=== PATIENT | male | born 1955 | race Caucasian/White ===

== ENCOUNTER 2021-09-12 08:07 | Emergency (ER) | payer OTHER ==
--- OUTSIDE RECORDS SUMMARY | 2021-09-12 08:10 | XMS REPORT | Continuity of Care Document ---
:1955 Author Organization [facility] t Address [address] [place] [address] Care Team Providers Name Role Phone FILIPPO Attending Clinician Unavailable Therapy-Walkin Attending Clinician Unavailable Opal Ramos MD Attending Clinician Doctor Unassigned, Name Attending Clinician Unavailable Payers Payer Name Policy Type Policy Number Effective Date Expiration Date S ource Problems Condition Condition Condition Status Onset Resolution Last Treating Co mments Source Name Details Category Date Date Treatment Clinician Date Contractur Contractur Disease Active 2019- U nivers e of e of 822 ity of palmar palmar 00:00: [place] fascia fascia [address] [place] [address] Finger Finger Disease Active 2019-0 Univers stiffness, stiffness, 822 it y of left left 00:00: [address] Allergies, Adverse Reactions, Alerts Allergy Allergy Status Severity Reaction(s) Onset Inactive Treating Comm ents Source Name Type Date Date Clinician No Known DA Active U 2019-0 [facility] Allergie 8-12 Clear s 00:00: [address] Social History Social Habit Start Date Stop Date Quantity Comments Source Alcohol intake [facility] Sex Assigned At [facility] Tobacco Comment 2015-06-24 2015-06-24 DIP [facility] 00:00:00 00:00:00 [facility] [place] Smoking Status Start Date Stop Date Source Never smoker [facility] Medications Ordered Filled Start Stop Current Ordering Indication Dosage Frequency Signature Comments Components Source Medication Medication Date Date Medication? Clinician (SIG) Name Name diclofenac 2016-0 Yes 75mg Take 1 Unive rs (VOLTAREN) 7-21 tablet by ity of 75 mg EC 00:00: mouth 2 [place] tablet 00 (two) Medical times Branch daily with meals. diclofenac 2016-0 Yes 75mg Take 1 Unive rs (VOLTAREN) 7-21 tablet by ity of 75 mg EC 00:00: mouth 2 [place] tablet 00 (two) Medical times Branch daily with meals. diclofenac 2016-0 Yes 75mg Take 1 Unive rs (VOLTAREN) 7-21 tablet by ity of 75 mg EC 00:00: mouth 2 [place] tablet 00 (two) Medical times Branch daily with meals. diclofenac 2016-0 Yes 75mg Take 1 Unive rs (VOLTAREN) 7-21 tablet by ity of 75 mg EC 00:00: mouth 2 [place] tablet 00 (two) Medical times Branch daily with meals. diclofenac 2016-0 Yes 75mg Take 1 Unive rs (VOLTAREN) 7-21 tablet by ity of 75 mg EC 00:00: mouth 2 [place] tablet 00 (two) Medical times Branch daily with meals. losartan 2016 Yes 25mg Take 25 mg Uni vers (COZAAR) 25 2-24 by mouth ity of mg tablet 21:31: daily. [address] losartan [address] Yes 25mg Take 25 mg Uni vers (COZAAR) 25 2-24 by mouth ity of mg tablet 21:31: daily. [address] losartan [address] Yes 25mg Take 25 mg Uni vers (COZAAR) 25 2-24 by mouth ity of mg tablet 21:31: daily. [address] losartan 2016-0 Yes 25mg Take 25 mg Uni vers (COZAAR) 25 2-24 by mouth ity of mg tablet 21:31: daily. [address] losartan 2016-0 Yes 25mg Take 25 mg Uni vers (COZAAR) 25 2-24 by mouth ity of mg tablet 21:31: daily. [address] IBUPROFEN 2016-0 Yes Take by Univ ers (ADVIL 2-24 mouth. ity of ORAL) 21:31: [address] IBUPROFEN 2016-0 Yes Take by Univ ers (ADVIL 2-24 mouth. ity of ORAL) 21:31: [place] 03 [facility] Branch IBUPROFEN 2016-0 Yes Take by [facility] ers (ADVIL 2-24 mouth. ity of ORAL) 21:31: [place] [facility] IBUPROFEN 2016-0 Yes Take by [facility] ers (ADVIL 2-24 mouth. ity of ORAL) 21:31: [place] [facility] IBUPROFEN 2016-0 Yes Take by [facility] ers (ADVIL 2-24 mouth. ity of ORAL) 21:31: [place] [facility] methylPREDN 2016-0 Yes 84mg Take 21 Uni vers ISolone 2-24 Tabs by ity of (MEDROL, 00:00: mouth [place] SYLVIA,) 4 mg 00 SEE-INSTRU Med ical tablets CTIONS. Branch follow package directions methylPREDN 2016-0 Yes 84mg Take 21 Uni vers ISolone 2-24 Tabs by ity of (MEDROL, 00:00: mouth [place] SYLVIA,) 4 mg 00 SEE-INSTRU Med ical tablets CTIONS. Branch follow package directions methylPREDN 2016-0 Yes 84mg Take 21 Uni vers ISolone 2-24 Tabs by ity of (MEDROL, 00:00: mouth [place] SYLVIA,) 4 mg 00 SEE-INSTRU Med ical tablets CTIONS. Branch follow package directions methylPREDN 2016-0 Yes 84mg Take 21 Uni vers ISolone 2-24 Tabs by ity of (MEDROL, 00:00: mouth [place] SYLVIA,) 4 mg 00 SEE-INSTRU Med ical tablets CTIONS. Branch follow package directions methylPREDN 2016-0 Yes 84mg Take 21 Uni vers ISolone 2-24 Tabs by ity of (MEDROL, 00:00: mouth [place] SYLVIA,) 4 mg 00 SEE-INSTRU Med ical tablets CTIONS. Branch follow package directions Procedures Procedure Date / Time Performing Clinician Source Performed NO SHOW OR MISSED 2019-01-16 16:03:23 Doctor Unassgénesis, [facility] APPOINTMENT POLICY [facility] ACKNOWLEDGEMENT ASSIGNMENT OF BENEFITS 2018-12-20 16:46:03 Doctor Tiny, [facility] REFERRAL- REQUEST/RESPONSE 2018-12-10 05:01:00 Doctor Summerssigned , [facility] Encounters Start End Encounter Admission Attending Care Care Encounter Source Date/Time Date/Time Type Type Clinicians Facility Department ID 2020-01-30 2020-01-30 Outpatient FILIPPO [facility] [id number] [place] 00:00:00 00:00:00 CHARLES [address] 2020-01-30 2020-01-30 Outpatient FILIPPO [facility] [id number] [place] 00:00:00 00:00:00 CHARLESARIANNA Crisostomo [facility] 2019-01-16 2019-01-16 Ancillary Therapy-Wal [facility] 1.2.840.114 [id number] 11:03:56 13:17:53 Visit john, Health [id number] Lia-Bb-Occu [place] 4.2.7.2.[address] [facility] [phone] [address] ([facility]) 2019-01-16 2019-01-16 Ancillary Therapy-Walkin, Ayp-Xs-Miqiz UTM B 1.2.840.114 [id number] [facility] 11:03:56 13:17:53 Visit Elbert Ramos Health [id number] ity of League 4.2.7.2.686 [facility] [phone] [address] ([facility]) 2019-01-16 2019-01-16 Orders Doctor LING 1.2.840.114 [id number] 00:00:00 00:00:00 Only Unassigned, MYRIAM [id number] [facility] 4.2.7.2.686 [id number] [id number] 2019-01-16 2019-01-16 Orders Doctor ANURADHA 1.2.840.114 [id number] Univers 00:00:00 00:00:00 Only Unassigned, MYRIAM [id number] ity of [facility] 4.2.7.2.686 Rey [phone] [address] 2018-12-20 2018-12-20 Ancillary Therapy-Wal [facility] 1.2.840.114 [id number] 10:37:38 11:37:38 Visit john Health [id number] Lia-Bb-Occu League 4.2.7.2.[address] [facility] [phone] [address] ([facility]) 2018-12-20 2018-12-20 Ancillary Therapy-Walkin, Mlw-Dl-Vaweq UTM B 1.2.840.114 [id number] [facility] 10:37:38 11:37:38 Visit Elbert Ramos [facility] [id number] ity of League 4.2.7.2.686 [facility] [phone] [address] ([facility]) 2018-12-20 2018-12-20 Orders Doctor ANURADHA 1.2.840.114 [id number] Univers 00:00:00 00:00:00 Only Unassigned, MYRIAM [id number] ity of [facility] 4.2.7.2.686 Rey as [phone] [address] 2018-12-20 2018-12-20 Orders Doctor ANURADHA 1.2.840.114 [id number] 00:00:00 00:00:00 Only Unassigned, MRYIAM 350.1.13.10 [facility] 4.2.7.2.686 [id number] [id number] 2018-12-10 2018-12-10 Orders Doctor ANURADHA 1.2.840.114 [id number] Univers 00:00:00 00:00:00 Only Unassigned, MYRIAM 350.1.13.10 ity of [facility] 4.2.7.2.686 Rey as [phone] [address] 2018-12-10 2018-12-10 Orders Doctor ANURADHA 1.2.840.114 [id number] 00:00:00 00:00:00 Only Unassigned, MYRIAM 350.1.13.10 [facility] 4.2.7.2.686 [id number] [id number] Results Test Description Test Time Test Comments Results Result Comments Source - XR CHEST 2 V 2018-12-10 FAX: Y 11:55:00 Diasy Craven [phone] [place]: St: PRE Name: JANKI SOTO [facility] : 1955 Age/S: 63/M [address] [place] [address] Blvd Unit #: [id number] Loc: [place] [address] Phys: Daisy Craven MD Acct: [id number] Dis Date: Status: PRE SDC PHONE #: [phone] Exam Date: 12/10/2018 1117 FAX #: [phone] Reason: LEFT HAND DUPUYTRENS DISEASE EXAMS: CPT CODE: [id number] XR CHEST 2 V 68394 CLINICAL HISTORY: LEFT HAND DUPUYTREN DISEASE COMPARISON: NONE PA and lateral films of the chest demonstrate that heart size is normal. Lung snow are clear. No evidence of pneumonia or congestive failure is seen. Regional skeletal structures demonstrate no acute abnormality. IMPRESSION: No evidence of pneumonia or congestive failure is seen. at 1159 Reported and signed by: Canelo Anderson M.D. CC: Daisy Craven MD Technologist: RT Ren(Gulshan) Trnscrd Date/Time/By: 12/10/2018 (1127) : By: CapoYOS Orig Print D/T: S: 12/10/2018 (3433) PAGE 1 Signed Report BASIC METABOLIC PANEL 2018-12-10 11:35:00 Test Item Value Reference Range Interpretation Comme nts SODIUM (test code = NA) 142 mEq/L 134-147 N POTASSIUM (test code = K) 3.9 mEq/L 3.4-5.0 N CHLORIDE (test code = CL) 108 mEq/L 100-108 N CARBON DIOXIDE (test code = CO2) 30 mEq/L 21-33 N ANION GAP (test code = GAP) 8 0-20 N GLUCOSE (test code = GLU) 105 mg/dL 70-110 N BLOOD UREA NITROGEN (test code = 16 mg/dL 7-18 N BUN) GLOMERULAR FILTRATION RATE (test 76.0 80-90 L Units of measure = ml/min/1.73 code = GFR) m2 CREATININE (test code = CREAT) 1.0 mg/dL 0.6-1.3 N CALCIUM (test code = CA) 9.2 mg/dL 8.0-10.5 N CBC W/AUTO [id number] 11:31:00 Test Item Value Reference Range Interpretation Comments WHITE BLOOD CELL (test code = 7.36 x10 3/uL 4.5-11.0 N WBC) RED BLOOD CELL (test code = 4.29 x10 6/uL 4.00-5.60 N RBC) HEMOGLOBIN (test code = HGB) 13.6 g/dL 12.5-16.9 N HEMATOCRIT (test code = HCT) 40.7 % 37.5-50.7 N MEAN CELL VOLUME (test code = 94.9 fL 81.0-99.0 N MCV) MEAN CELL HGB (test code = MCH) 31.7 pg 27.0-33.0 N MEAN CELL HGB CONCETRATION 33.4 g/dL 33.0-37.0 N (test code = MCHC) RED CELL DISTRIBUTION WIDTH CV 11.9 % 11.5-14.5 N (test code = RDW) RED CELL DISTRIBUTION WIDTH SD 41.5 fL 37.0-54.0 N (test code = RDW-SD) PLATELET COUNT (test code = 252 x10 3/uL 150-400 N PLT) MEAN PLATELET VOLUME (test code 10.3 fL 7.0-9.0 H = MPV) NEUTROPHIL % (test code = NT%) 68.4 % 56.0-77.0 N IMMATURE GRANULOCYTE % (test 0.8 % 0.0-2.0 N code = IG%) LYMPHOCYTE % (test code = LY%) 19.6 % 14.0-32.0 N MONOCYTE % (test code = MO%) 7.9 % 4.8-9.0 N EOSINOPHIL % (test code = EO%) 2.3 % 0.3-3.7 N BASOPHIL % (test code = BA%) 1.0 % 0.0-2.0 N NUCLEATED RBC % (test code = 0.0 % 0-0 N NRBC%) NEUTROPHIL # (test code = NT#) 5.04 x10 3/uL 2.0-7.6 N IMMATURE GRANULOCYTE # (test 0.06 x10 3/uL 0.00-0.03 H code = IG#) LYMPHOCYTE # (test code = LY#) 1.44 x10 3/uL 1.0-3.8 N MONOCYTE # (test code = MO#) 0.58 x10 3/uL 0.1-0.8 N EOSINOPHIL # (test code = EO#) 0.17 x10 3/uL 0.0-0.2 N BASOPHIL # (test code = BA#) 0.07 x10 3/uL 0.0-0.2 N NUCLEATED RBC # (test code = 0.00 x10 3/uL 0.0-0.1 N NRBC#) MANUAL DIFF REQUIRED (test code NO = MDIFF)
[2021-09-12] MEDS ORDERED: dexAMETHasone 10 MG/ML VIAL ONE (08:38)
[2021-09-12] MEDS ORDERED: KETOROLAC 30 MG/ML INJ ONE (08:39)
--- NOTE | 2021-09-12 09:39 | RAD REPORT ---
EXAM DESCRIPTION: RAD -Hand Left 3 View - 09/12/2021 9:31 am CLINICAL HISTORY: Left hand pain FINDINGS: No fracture or dislocation is seen. Bones appear somewhat osteoporotic. Mild narrowing involves several DIP and PIP joints.
--- NOTE | 2021-09-12 09:59 | EDPHYS ---
Physician Documentation [facility] Name: Madhu Posada Age: 65 yrs Sex: Male : 1955 Arrival Date: 09/12/2021 Time: 08:09 Bed 20 Private MD: Nilesh Blanc E ED Physician Troy Painter HPI: 09/12 08:22 This 65 yrs old Male presents to ER via Ambulatory with complaints of Hand Swelling, pm1 Wrist Pain. 08:22 The patient or guardian reports swelling to right hand and pain to right wrist. pm1 Context: resulted from an unknown cause. Onset: The symptoms/episode began/occurred 3 day(s) ago. Modifying factors: the symptoms are aggravated by Patient continued to work out, lift weights with swelling of right hand and pain to right wrist. Associated signs and symptoms: Pertinent negatives: cyanosis distally, decreased sensation distally, numbness distally, tingling distally. Severity of symptoms: in the emergency department the symptoms are actually worse. The patient has not experienced similar symptoms in the past. The patient has not recently seen a physician. Historical: - Allergies: 08:45 No Known Allergies; bp - Home Meds: 08:45 Carbidopa-Levodopa Oral [Active]; Sulfasalazine Oral [Active]; losartan oral [Active]; bp - PMHx: 08:45 Hypertensive disorder; Parkinson's disease; Arthritis; bp - Immunization history:: Client reports receiving the 2nd dose of the Covid vaccine. - Social history:: Smoking status: Patient denies any tobacco usage or history of. ROS: 08:22 Constitutional: Negative for fever, chills, and weight loss, Cardiovascular: Negative pm1 for chest pain, palpitations, and edema, Respiratory: Negative for shortness of breath, cough, wheezing, and pleuritic chest pain, Back: Negative for injury and pain. 08:22 Skin: Negative for injury, rash, and discoloration, Neuro: Negative for headache, weakness, numbness, tingling, and seizure. 08:22 MS/extremity: Positive for right wrist pain and right hand swelling. 08:22 All other systems are negative. Exam: 08:22 Constitutional: This is a well developed, well nourished patient who is awake, alert, pm1 and in no acute distress. Head/Face: Normocephalic, atraumatic. 08:22 Skin: Warm, dry with normal turgor. Normal color with no rashes, no lesions, and no evidence of cellulitis. 08:22 Cardiovascular: Exam negative for acute changes, Rate: normal, Rhythm: regular, Pulses: no pulse deficits are appreciated, Pulses are 2+ in right radial artery. 08:22 Respiratory: Exam negative for acute changes, respiratory distress, shortness of breath. 08:22 Musculoskeletal/extremity: Extremities: grossly normal except: noted in the dorsal aspect of right wrist tenderness with percussion: noted in the right wrist: mild pain with Phalen's test. 08:22 Neuro: Exam negative for acute changes, Orientation: is normal, Mentation: is normal, Motor: is normal, moves all fours. Vital Signs: 08:21 BP 129 / 96; Pulse 76; Resp 16; Temp 98.2; Pulse Ox 99% on R/A; iw 10:12 BP 124 / 85; Pulse 74; Resp 17; Pulse Ox 99% ; bp MDM: 08:15 Patient medically screened. pm1 09:15 Data reviewed: vital signs. Data interpreted: Pulse oximetry: on room air is 99 %. pm1 Interpretation: normal. 09:56 Counseling: I had a detailed discussion with the patient and/or guardian regarding: the pm1 historical points, exam findings, and any diagnostic results supporting the discharge/admit diagnosis, radiology results, the need for outpatient follow up, a family practitioner, a hand specialist, a orthopedic surgeon, to return to the emergency department if symptoms worsen or persist or if there are any questions or concerns that arise at home. 09:56 ED course: patient's possible other diagnosis is sprain to right wrist. Patient has pm1 been weight lifting and performing pull down's. Patient taking sulfasalazine so will treat with steroids for inflammation and wrist splint with instructions to stop working out to reduce further inflamation and injury. 09/12 09:35 Order name: Hand Right 3 View; Complete Time: 09:40 EDMS 09/12 08:22 Order name: Ice pack; Complete Time: 08:41 pm1 09/12 09:42 Order name: Wrist Splint; Complete Time: 10:01 pm1 Administered Medications: 08:30 Drug: Ketorolac 60 mg Route: IM; Site: left gluteus; bp 09:43 Follow up: Response: No adverse reaction bp 08:30 Drug: Decadron (dexamethasone) 10 mg Route: IM; Site: left gluteus; bp 09:43 Follow up: Response: No adverse reaction bp Disposition Summary: 09/12/21 09:58 Discharge Ordered Location: Home pm1 Problem: new pm1 Symptoms: have improved pm1 Condition: Stable pm1 Diagnosis - Unspecified osteoarthritis, 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 pm1 Followup: pm1 - With: Emergency Department - When: As needed - Reason: Worsening of condition Followup: pm1 - With: Private Physician - When: 2 - 3 days - Reason: Recheck today's complaints, Continuance of care, Re-evaluation by your physician Discharge Instructions: - Discharge Summary Sheet pm1 - Arthritis pm1 Forms: - Medication Reconciliation Form pm1 - Thank You Letter pm1 - Antibiotic Education pm1 - Prescription Opioid Use pm1 Prescriptions: - Medrol (Rubin) 4 mg Oral Tablets, Dose Pack - take 1 tablet by ORAL route as directed - follow package instructions; 1 pm1 packet; Refills: 0, Product Selection Permitted Signatures: Dispatcher [employer] EDMS Gaurang Muller, TIMBER ESTIMATOR TIMBER ESTIMATOR pm1 Elbert Borges, RN RN bp Corrections: (The following items were deleted from the chart) 09:34 08:23 Hand Left 3 View+RAD.RAD.WAGNER ordered. EDNC TANMAYNC
--- NOTE | 2021-09-12 09:59 | ER ---
Nurse's Notes [facility] Name: Madhu Posada Age: 65 yrs Sex: Male : 1955 Arrival Date: 09/12/2021 Time: 08:09 Bed 20 Private MD: Nilesh Blanc E Diagnosis: Unspecified osteoarthritis, unspecified site-right wrist and right hand Presentation: 09/12 08:21 Chief complaint: Patient states: right hand swelling , hx of arthritis. Coronavirus iw screen: At this time, the client does not indicate any symptoms associated with coronavirus-19. Ebola Screen: Patient negative for fever greater than or equal to 101.5 degrees Fahrenheit, and additional compatible Ebola Virus Disease symptoms Patient denies exposure to infectious person. Patient denies travel to an Ebola-affected area in the 21 days before illness onset. No symptoms or risks identified at this time. Initial Sepsis Screen: Does the patient meet any 2 criteria? No. Patient's initial sepsis screen is negative. Does the patient have a suspected source of infection? No. Patient's initial sepsis screen is negative. Risk Assessment: Do you want to hurt yourself or someone else? Patient reports no desire to harm self or others. Onset of symptoms was September 12, 2021. 08:21 Method Of Arrival: Ambulatory iw 08:21 Acuity: TRACY 4 iw Triage Assessment: 08:41 General: Appears in no apparent distress. uncomfortable, Behavior is calm, cooperative, bp appropriate for age. Pain: Complains of pain in right hand. EENT: No deficits noted. Neuro: No deficits noted. Cardiovascular: No deficits noted. Respiratory: No deficits noted. GI: No signs and/or symptoms were reported involving the gastrointestinal system. : No signs and/or symptoms were reported regarding the genitourinary system. Derm: No deficits noted. Musculoskeletal: Swelling present in right hand. Historical: - Allergies: 08:45 No Known Allergies; bp - Home Meds: 08:45 Carbidopa-Levodopa Oral [Active]; Sulfasalazine Oral [Active]; losartan oral [Active]; bp - PMHx: 08:45 Hypertensive disorder; Parkinson's disease; Arthritis; bp - Immunization history:: Client reports receiving the 2nd dose of the Covid vaccine. - Social history:: Smoking status: Patient denies any tobacco usage or history of. Screenin:43 Abuse screen: Denies threats or abuse. Denies injuries from another. Nutritional bp screening: No deficits noted. Tuberculosis screening: No symptoms or risk factors identified. Fall Risk None identified. Assessment: 08:42 General: SEE TRIAGE NOTE. bp 10:11 Reassessment: PT D/C HOME AMBULATORY, DX WITH WRIST ARTHRITIS. bp Vital Signs: 08:21 BP 129 / 96; Pulse 76; Resp 16; Temp 98.2; Pulse Ox 99% on R/A; iw 10:12 BP 124 / 85; Pulse 74; Resp 17; Pulse Ox 99% ; bp ED Course: 08:09 Patient arrived in ED. am2 08:10 Nilesh Blanc MD is Private Physician. am2 08:11 [facility] pm1 08:11 Troy Painter MD is Attending Physician. pm1 08:21 Triage completed. iw 08:26 Elbert Borges RN is Primary Nurse. bp 08:41 Arm band placed on. bp 08:43 Patient has correct armband on for positive identification. Bed in low position. Call bp light in reach. Side rails up X2. 09:35 Hand Right 3 View In Process Unspecified. EDMS 10:01 Velcro wrist splint applied to right wrist. bp 10:11 No provider procedures requiring assistance completed. Patient did not have IV access bp during this emergency room visit. Administered Medications: 08:30 Drug: Ketorolac 60 mg Route: IM; Site: left gluteus; bp 09:43 Follow up: Response: No adverse reaction bp 08:30 Drug: Decadron (dexamethasone) 10 mg Route: IM; Site: left gluteus; bp 09:43 Follow up: Response: No adverse reaction bp Medication: 10:11 VIS not applicable for this client. bp Outcome: 09:58 Discharge ordered by MD. pm1 10:11 Discharged to home ambulatory. bp 10:11 Condition: stable 10:11 Discharge instructions given to patient, Instructed on discharge instructions, follow up and referral plans. medication usage, Demonstrated understanding of instructions, follow-up care, medications, Prescriptions given X 1. 10:12 Patient left the ED. bp Signatures: Dispatcher [employer] EDMS Karissa Rodriguez RN RN iw Gaurang Muller NP [employer] pm1 Miriam Griffith am2 Elbert Borges, RN RN bp Corrections: (The following items were deleted from the chart) 09:34 09:33 In radiology for Hand Left 3 View+RAD.RAD.BRZ. EDMS EDMS
[2021-09-12 10:17] VITALS: TEMP 98.2; O2SAT 99
[2021-09-12 10:19] VITALS: BP 124/85
== END 2021-09-12 10:12 | disposition home or self-care (01) ==
LOC: ER 08:07
DX: M19.031 Primary osteoarthritis, right wrist (principal); M19.041 Primary osteoarthritis, right hand; I10 Essential (primary) hypertension; G20 Parkinson's disease
CPT/HCPCS: 73130; 96372; 99284; J1100

== ENCOUNTER 2023-07-30 20:47 | Emergency (ER) | payer OTHER ==
[2023-07-30] MEDS ORDERED: LIDOCAINE 1% 20 ML MDV ONE (21:06)
--- NOTE | 2023-07-30 21:41 | RAD REPORT ---
EXAM DESCRIPTION: RAD - Hand Left 3 View - 07/30/2023 9:29 pm CLINICAL HISTORY: fall, laceration/injury COMPARISON: No comparisons FINDINGS/IMPRESSION: No acute fracture. No malalignment. No significant focal degenerative changes. No radiopaque foreign body.
--- NOTE | 2023-07-30 22:32 | EDPHYS ---
Physician Documentation [facility] Name: Madhu Posada Age: 67 yrs Sex: Male : 1955 Arrival Date: 07/30/2023 Time: 20:47 Bed 11 Private MD: ED Physician Colin Szymanski HPI: 07/29 20:53 This 67 yrs old Male presents to ER via Unassigned with complaints of hand Injury. rn 20:53 Trauma demographics: Location of Injury: The injury occurred at home. Mechanism of rn injury: Fall:. Associated injuries: The patient sustained Left hand. Onset: The symptoms/episode began/occurred just prior to arrival. The patient has not experienced similar symptoms in the past. Patient reports was dark outside, misstepped, fell and was holding a glass, glass broke and thinks that is what cut his left hand. Does not feel broken. States last tetanus within last 5 years. Takes baby aspirin but nothing stronger. Denies any other injury other than left hand lacerations. Historical: - Allergies: 20:52 No Known Allergies; as6 - PMHx: 20:52 Arthritis; Hypertensive disorder; Parkinson's disease; as6 - PSHx: 20:52 shoulder; knee; hand; as6 - Immunization history:: Last tetanus immunization: < 5 years ago. - Social history:: Smoking status: Patient reports use of chewing tobacco. - Family history:: not pertinent. - Hospitalizations: : No recent hospitalization is reported. ROS: 20:53 Constitutional: Negative for fever, chills, and weight loss, Neck: Negative for injury, rn pain, and swelling, Cardiovascular: Negative for chest pain, palpitations, and edema, Respiratory: Negative for shortness of breath, cough, wheezing, and pleuritic chest pain, Abdomen/GI: Negative for abdominal pain, nausea, vomiting, diarrhea, and constipation, Back: Negative for injury and pain, MS/Extremity: Positive for lacerations to left and Neuro: Negative for headache, weakness, numbness, tingling, and seizure, Exam: 20:53 Constitutional: This is a well developed, well nourished patient who is awake, alert, rn and in no acute distress. Head/Face: Normocephalic, atraumatic. Neck: No midline cervical tenderness Cardiovascular: Regular rate and rhythm. No pulse deficits. MS/ Extremity: Pulses equal, no cyanosis. Neurovascular intact. Full, normal range of motion. No gross bony deformity noted. 2 cm superficial dorsal laceration overlying the PIP of the third digit. Deeper thickness laceration over the dorsum of the fifth digit, approximately 4 cm, starts at the PIP and crosses nailbed to tip of finger. Neuro: Awake and alert, GCS 15, oriented to person, place, time, and situation. Motor strength 5/5 in all extremities. Sensory grossly intact. Normal gait. Vital Signs: 20:53 BP 125 / 73; Pulse 76; Resp 18 S; Temp 98.1(TE); Pulse Ox 96% on R/A; Weight 78.02 kg as6 (R); Height 5 ft. 11 in. (R); Pain 3/10; 21:30 BP 115 / 70; Pulse 78; Resp 16; Pulse Ox 100% ; pf1 22:30 BP 123 / 79; Pulse 80; Resp 16; Temp 98.3; Pulse Ox 99% on R/A; Pain 0/10; pf1 20:53 Body Mass Index 23.99 (78.02 kg, 180.34 cm) as6 20:53 Pain Scale: Adult as6 22:30 Pain Scale: Adult pf1 Laceration: 22:22 Wound Repair of 2cm ( 0.8in ) subcutaneous laceration to left hand, 3rd digit. rn Irregularly shaped.. Distal neuro/vascular/tendon intact. Anesthesia: Local anesthetic administered with 1 mls of 1% lidocaine. Wound prep: Extensive cleansing by me, Wound irrigation by me, Wound explored extensively, Copious irrigation. Skin closed with 4 4-0 Prolene using interrupted sutures and sterile technique. Dressed with 4x4's. Patient tolerated well. 22:22 Wound Repair of 4.5cm ( 1.8in ) partial thickness laceration to left hand, 5th digit. rn Irregularly shaped.. Skin/tissue flap noted.. Involves the nailbed and nail. Distal neuro/vascular/tendon intact. Anesthesia: Regional Block with 3 mls of 1% lidocaine. Wound prep: Extensive cleansing by me, Wound irrigation by me, Wound explored, Copious irrigation. Skin closed with 10 4-0 Prolene using interrupted sutures and sterile technique. Dressed with 4x4's, pressure dressing. Patient tolerated well. MDM: 20:48 Patient medically screened. rn 22:30 Differential diagnosis: Finger fracture, laceration. Data reviewed: vital signs, nurses rn notes, radiologic studies, plain films, and as a result, I will discharge patient. Counseling: I had a detailed discussion with the patient and/or guardian regarding the historical points, exam findings, and any diagnostic results supporting the discharge/admit diagnosis, radiology results, the need for outpatient follow up, to return to the emergency department if symptoms worsen or persist or if there are any questions or concerns that arise at home. Special discussion: I discussed with the patient/guardian in detail that at this point there is no indication for admission to the hospital. It is understood, however, that if the symptoms persist or worsen the patient needs to return immediately for re-evaluation. ED course: X-ray left hand images negative for acute fracture. No foreign body. Wound sutured and hemostasis achieved. Patient tolerated well. Left fifth digit was complicated and extensive laceration, will cover with antibiotics and pain medication.. 07/29 20:53 Order name: XRAY Hand LEFT 3 View; Complete Time: 21:44 rn 07/29 21:05 Order name: Dressing - Wound; Complete Time: 22:34 rn 07/29 21:05 Order name: Gloves, Sterile; Complete Time: 21:24 rn 07/29 21:05 Order name: Setup Suture Tray; Complete Time: 21:24 rn 07/29 22:30 Order name: Wound Care; Complete Time: 22:34 rn Administered Medications: 22:00 Drug: Lidocaine Infiltration (1 %) 1 vials 20 ml Infiltration once; to bedside {Note: pf1 administered per Dr. Szymanski.} Volume: 20 ml; Route: Infiltration; 22:35 Follow up: Response: No adverse reaction; Marked relief of symptoms; Pain is decreased pf1 22:35 Drug: traMADol PO 50 mg PO once Route: PO; pf1 22:50 Follow up: Response: No adverse reaction; Marked relief of symptoms; Pain is decreased; pf1 RASS: Alert and Calm (0) 22:35 Drug: Amoxicillin-Clavulanate PO 875 mg PO once Route: PO; pf1 22:50 Follow up: Response: No adverse reaction; Marked relief of symptoms; Pain is decreased pf1 Disposition Summary: 07/30/23 22:32 Discharge Ordered Notes: Location: Home rn Problem: new rn Symptoms: have improved rn Condition: Stable rn Diagnosis - Laceration without foreign body of left middle finger without damage to nail rn - Laceration without foreign body of left little finger with damage to nail, initial rn encounter Followup: rn - With: Emergency Department - When: 14 days - Reason: Staple/Suture removal Discharge Instructions: - Discharge Summary Sheet rn - Laceration Care, Adult rn Forms: - Medication Reconciliation Form rn - Thank You Letter rn - Antibiotic leadership program internship - Prescription Opioid Use rn - Patient Portal Instructions rn - Leadership Thank You Letter rn Prescriptions: - Augmentin 875-125 mg Oral Tablet - take 1 tablet ORAL route every 12 hours for 10 days; 20 tablet; Refills: 0, rn Product Selection Permitted - Tramadol 50 mg Oral Tablet - take 1 tablet ORAL route every 8 hours as needed; 12 tablet; Refills: 0, rn Product Selection Permitted Signatures: Dispatcher [employer] EDMS Colin Szymanski MD MD rn Slawson, Ashby, RN RN as6 Aidee Caldwell RN RN pf1 Corrections: (The following items were deleted from the chart) 21:01 20:53 Constitutional: This is a well developed, well nourished patient who is awake, rn alert, and in no acute distress. Head/Face: Normocephalic, atraumatic. Neck: No midline cervical tenderness Cardiovascular: Regular rate and rhythm. No pulse deficits. MS/ Extremity: Pulses equal, no cyanosis. Neurovascular intact. Full, normal range of motion. No gross bony deformity noted. Neuro: Awake and alert, GCS 15, oriented to person, place, time, and situation. Motor strength 5/5 in all extremities. Sensory grossly intact. Normal gait. rn
--- NOTE | 2023-07-30 22:32 | ER ---
Nurse's Notes [facility] Name: Madhu Posada Age: 67 yrs Sex: Male : 1955 Arrival Date: 07/30/2023 Time: 20:47 Bed 11 Private MD: Diagnosis: Laceration without foreign body of left middle finger without damage to nail;Laceration without foreign body of left little finger with damage to nail, initial encounter Presentation: 07/29 20:53 Chief complaint: Patient states: pt cut his left fingers on a broken coffee cup. as6 Coronavirus screen: At this time, the client does not indicate any symptoms associated with coronavirus-19. Ebola Screen: No symptoms or risks identified at this time. Initial Sepsis Screen: Does the patient meet any 2 criteria? No. Patient's initial sepsis screen is negative. Does the patient have a suspected source of infection? No. Patient's initial sepsis screen is negative. Risk Assessment: Do you want to hurt yourself or someone else? Patient reports no desire to harm self or others. Onset of symptoms was July 30, 2023. 20:53 Acuity: TRACY 4 as6 20:53 Method Of Arrival: Ambulatory as6 Historical: - Allergies: 20:52 No Known Allergies; as6 - PMHx: 20:52 Arthritis; Hypertensive disorder; Parkinson's disease; as6 - PSHx: 20:52 shoulder; knee; hand; as6 - Immunization history:: Last tetanus immunization: < 5 years ago. - Social history:: Smoking status: Patient reports use of chewing tobacco. - Family history:: not pertinent. - Hospitalizations: : No recent hospitalization is reported. Screenin:56 [facility] ED Fall Risk Assessment (Adult) History of falling in the last 3 months, mb9 including since admission Yes- single mechanical fall (1 pt) Confusion or Disorientation No (0 pts) Intoxicated or Sedated No (0 pts) Impaired Gait No (0 pts) Mobility Assist Device Used No (0 pt) Altered Elimination No (0 pt) Score/Fall Risk Level 3 or more points = High Risk Oriented to surroundings, Maintained a safe environment, Educated pt \T\ family on fall prevention, incl call for assistance when getting out of bed, Assessed \T\ reinforced patient's understanding of fall precautions. Abuse screen: Denies threats or abuse. Nutritional screening: No deficits noted. Tuberculosis screening: No symptoms or risk factors identified. Assessment: 20:59 General: Appears in no apparent distress. Behavior is calm, cooperative. Pain: mb9 Complains of pain in left hand Pain does not radiate. Quality of pain is described as throbbing. Neuro: Russell Agitation-Sedation Scale (RASS): 0 - Alert and Calm Level of Consciousness is awake, alert, obeys commands, Oriented to person, place, time, situation, Appropriate for age. Cardiovascular: Patient's skin is warm and dry. Respiratory: Airway is patent Respiratory effort is even, unlabored, Respiratory pattern is regular, symmetrical. GI: No signs and/or symptoms were reported involving the gastrointestinal system. : No signs and/or symptoms were reported regarding the genitourinary system. EENT: No signs and/or symptoms were reported regarding the EENT system. Derm: Skin is pink, warm \T\ dry. Musculoskeletal: Range of motion: intact in all extremities. Injury Description: Laceration sustained to left hand is not bleeding. 21:50 Reassessment: Patient appears in no apparent distress at this time. Patient and/or pf1 family updated on plan of care and expected duration. Pain level reassessed. Patient is alert, oriented x 3, equal unlabored respirations, skin warm/dry/pink. 22:50 Reassessment: Patient appears in no apparent distress at this time. Patient and/or pf1 family updated on plan of care and expected duration. Pain level reassessed. Patient is alert, oriented x 3, equal unlabored respirations, skin warm/dry/pink. Patient states feeling better. Patient states symptoms have improved. Vital Signs: 20:53 BP 125 / 73; Pulse 76; Resp 18 S; Temp 98.1(TE); Pulse Ox 96% on R/A; Weight 78.02 kg as6 (R); Height 5 ft. 11 in. (R); Pain 3/10; 21:30 BP 115 / 70; Pulse 78; Resp 16; Pulse Ox 100% ; pf1 22:30 BP 123 / 79; Pulse 80; Resp 16; Temp 98.3; Pulse Ox 99% on R/A; Pain 0/10; pf1 20:53 Body Mass Index 23.99 (78.02 kg, 180.34 cm) as6 20:53 Pain Scale: Adult as6 22:30 Pain Scale: Adult pf1 ED Course: 20:47 Patient arrived in ED. im 20:48 Colin Szymanski MD is Attending Physician. rn 20:52 Arm band placed on. as6 20:54 Triage completed. as6 20:56 Nidhi Gonzalez, RANDEE is Primary Nurse. mb9 20:56 Placed in gown. Bed in low position. Call light in reach. Side rails up X 1. Client mb9 placed on continuous cardiac and pulse oximetry monitoring. NIBP monitoring applied. Door closed. Noise minimized. Warm blanket given. 21:01 Provided Education on: press call light if needing anything. mb9 21:31 XRAY Hand LEFT 3 View In Process Unspecified. EDMS 22:40 Wound care: to laceration located on left hand was cleaned with Hibiclens, Patient pf1 tolerated well. 22:45 Dressings: Band aid x 2 left hand 4X4s X 1; left hand coban to 5th digit. pf1 22:50 No provider procedures requiring assistance completed. pf1 22:50 Patient did not have IV access during this emergency room visit. pf1 Administered Medications: 22:00 Drug: Lidocaine Infiltration (1 %) 1 vials 20 ml Infiltration once; to bedside {Note: pf1 administered per Dr. Szymanski.} Volume: 20 ml; Route: Infiltration; 22:35 Follow up: Response: No adverse reaction; Marked relief of symptoms; Pain is decreased pf1 22:35 Drug: traMADol PO 50 mg PO once Route: PO; pf1 22:50 Follow up: Response: No adverse reaction; Marked relief of symptoms; Pain is decreased; pf1 RASS: Alert and Calm (0) 22:35 Drug: Amoxicillin-Clavulanate PO 875 mg PO once Route: PO; pf1 22:50 Follow up: Response: No adverse reaction; Marked relief of symptoms; Pain is decreased pf1 Medication: 20:56 VIS not applicable for this client. mb9 Outcome: 22:32 Discharge ordered by . rn 22:50 Discharged to home ambulatory, pf1 22:50 Condition: improved 22:50 Discharge instructions given to patient, Instructed on discharge instructions, follow up and referral plans. Demonstrated understanding of instructions, follow-up care, medications, Prescriptions given X 2, 22:58 Patient left the ED. pf1 Signatures: Dispatcher [employer] EDMS Colin Szymanski MD MD rn Slawson, Ashby, RN RN as6 Nidhi Gonzalez RN RN mb9 Aidee Caldwell RN RN pf1 Shannon Burroughs Corrections: (The following items were deleted from the chart) 20:59 20:56 [facility] ED Fall Risk Assessment (Adult) History of falling in the last 3 months, mb9 including since admission No falls in past 3 months (0 pts) Confusion or Disorientation No (0 pts) Intoxicated or Sedated No (0 pts) Impaired Gait No (0 pts) Mobility Assist Device Used No (0 pt) Altered Elimination No (0 pt) Score/Fall Risk Level 0 - 2 = Low Risk Oriented to surroundings, Maintained a safe environment, Educated pt \T\ family on fall prevention, incl call for assistance when getting out of bed, mb9
[2023-07-30] MEDS ORDERED: AMOX/K CLAV 875 MG TAB ONE (22:38)
[2023-07-30] MEDS ORDERED: TRAMADOL HCL 50 MG TAB ONE (22:38)
[2023-07-31 04:17] VITALS: BP 123/79; TEMP 98.3; O2SAT 99
== END 2023-07-30 22:58 | disposition home or self-care (01) ==
LOC: ER 20:47
PROC: 0HQGXZZ Repair Left Hand Skin, External Approach (ICD-10-PCS; principal; 2023-07-30)
DX: S61.213A Laceration without foreign body of left middle finger without damage to nail, initial encounter (principal); S61.317A Laceration without foreign body of left little finger with damage to nail, initial encounter; G20.A1 Parkinson's disease without dyskinesia, without mention of fluctuations; F17.220 Nicotine dependence, chewing tobacco, uncomplicated
CPT/HCPCS: 73130; 99284; 12002; J2001